=== PATIENT | male | born 1965 | race Caucasian/White ===

== ENCOUNTER → 2024-07-02 13:42 | Outpatient (CLI) | payer OTHER, SELFPAY ==
[2024-07-02 14:36] LABS: Cholesterol 255 mg/dL (140-199); Triglycerides 64 mg/dL (35-150)
[2024-07-02 14:44] LABS: HDL Cholesterol 118 mg/dL (40-60); LDL Cholesterol Calculated 124 mg/dL (<100)
[2024-07-02 18:54] LABS: Hep C Virus Ab w/Reflex Quant NEGATIVE s/c (NEGATIVE)
== END ==
PROVIDERS: PCP Nurse Practitioner Family; Referring Provider Nurse Practitioner Family; Visit Provider Nurse Practitioner Family
DX: Z13.220 Encounter for screening for lipoid disorders (principal); Z11.59 Encounter for screening for other viral diseases
CPT/HCPCS: 36415; 80061; 86803